=== PATIENT | female | born 1955 | race Caucasian/White ===

== ENCOUNTER 2024-01-31 21:17 | Emergency (ER) | payer OTHER, SELFPAY ==
[2024-01-31 21:17] VITALS: BMI 25.3
[2024-01-31 21:31] VITALS: BP 135/66
[2024-01-31 22:15] LABS: COVID-19 Antigen Negative (Negative)
[2024-02-01 00:53] VITALS: BP 119/72
[2024-02-01 01:34] LABS: % Basophils 0.4 % (0-2); % Eosinophils 0.6 % (0-6); % Immature Granulocytes 0.2 % (0-0.5); % Lymphocytes 36.2 % (20.5-51.1); % Monocytes 14.1 % (1.7-9.3); % Neutrophils 48.5 % (42.2-75.2); Absolute Lymphocytes 1.7 10^3/uL (1.2-3.4); Absolute Monocytes 0.7 10^3/uL (0.1-0.6); Absolute Neutrophils 2.3 10^3/uL (1.4-6.5); Hematocrit 39.5 % (37.0-47.0); Mean Corp Hgb Conc. 35.4 g/dL (33.0-37.0); Mean Corpuscular Hgb 29.9 pg (27.0-31.0); Mean Corpuscular Volume 84.2 fL (81.0-99.0); Nucleated Red Blood Cells % 0 %; Platelet Count 153 10^3/uL (130-400); Red Blood Cell Count 4.69 10^6/uL (4.20-5.40); Red Cell Dist. Width 12.2 % (11.5-14.5); White Blood Cell Count 4.7 10^3/uL (4.8-10.8)
[2024-02-01 01:47] LABS: ALT (SGPT) 23 U/L (0-35); AST (SGOT) 29 U/L (14-36); Albumin 4.2 g/dl (3.5-5.0); Alkaline Phosphatase 67 U/L (38-126); Blood Urea Nitrogen 19 mg/dl (7-17); Calcium 9.4 mg/dl (8.4-10.2); Carbon Dioxide 28 mmol/L (22-30); Chloride 95 mmol/L (98-107); Estimated Creatinine Clearance 83 ml/min; Glucose 120 mg/dl (70-99); Potassium 3.4 mmol/L (3.5-5.1); Sodium 129 mmol/L (135-145); Total Bilirubin 0.6 mg/dl (0.2-1.3); Total Protein 6.7 g/dl (6.3-8.2); eGFR > 60.00
[2024-02-01 01:58] LABS: Troponin I < 0.012 ng/ml
--- NOTE | 2024-02-01 02:11 | ED.GENMED ---
History of Present Illness
General
Chief Complaint: Cough
Source: patient
Exam Limitations: none
Time Seen by Provider: 02/01/24 01:18
Nursing documentation reviewed up to this point in time: agreed with
Travel History
Have you had any contact with someone who has COVID-19?: No
Do you have any symptoms of coronavirus? Fever > 100 degrees, chills, cough, shortness of breath, sore throat, loss of taste or smell, muscle aches, or headache?: No
History of Present Illness
History of Present Illness:
68-year-old female presents emergency ferment complaining of cough, sore throat, sinus congestion, weakness and fever over the past 3 days. Her chest hurts when she coughs. She started azithromycin yesterday for a sinus infection, which she gets
frequently.
Past History
Past History
ED Past Medical History: Cancer (Carcinoid tumor of appendix.), COPD, CVA, GERD, HTN and Psychiatric (Anxiety)
ED Past Surgical History: Appendectomy, Bowel resection (Appendix/carcinoid tumor removal with right hemicolectomy), (�3), Gynecological (Hysterectomy, benign breast biopsies) and Other (Incisional, abdominal wall hernia repair, inguinal
hernia repair)
Social History
Tobacco: Former smoker
Alcohol: Occasional
Personal:
Living: with family
Employment: Disabled
Family History
Family History: Other (Noncontributory)
Review of Systems
Review of Systems
Allergies reviewed?: Yes
All Other Systems: Not applicable
Constitutional: Reports fever
EENT: Reports sore throat and runny nose
Respiratory: Reports cough
Cardiac: Reports no symptoms
ABD/GI: Reports no symptoms
: Reports no symptoms
Musculoskeletal: Reports no symptoms
Skin: Reports no symptoms
Neurological: Reports no symptoms
Endocrine: Reports no symptoms
Hematologic/Lymphatic: Reports no symptoms
Psychiatric: Reports no symptoms
Phy Exam
Physical Exam
Physical Exam:
Physical Exam
General: no apparent distress, not acutely ill
Neck: supple. no meningeal signs. normal posterior pharynx
Heart: s1/s2 regular rate and rhythm, no murmur. equal radial
pulses.
HEENT: Pupils equal round reactive to light, EOMI
Lungs: no acute respiratory distress. Faint wheezing bilaterally
Abdomen: normal bowel sounds. not tender. no CVAT
Neuro: alert and oriented. no focal neurological deficits cranial nerves II through XII intact
Skin: no rash
Psychiatric: well kept. interactive and cooperative
Extremities: no edema. no calf tenderness. negative homans. good distal pulses
Course
Orders/Labs/Results
Orders:
Orders
01/31/24 21:32
Complete Blood Count/With Diff Urgent
Comprehensive Metabolic Panel Urgent
01/31/24 21:42
COVID-19 Antigen Urgent
Source: Nasal Swab
Influenza A+B Rapid Molecular Urgent
TYRESE Source: Nasal Swab
Specimen Description:
01/31/24 21:44
ECG [Electrocardiogram (*1)] Urgent
Reason for Study: Chest Pain
EKG- Treatment ONCE
02/01/24 01:09
Electrocardiogram (*1) Urgent
Reason for Study: Chest Pain
EKG- Treatment ONCE
02/01/24 01:27
Troponin I Urgent
02/01/24 02:08
CR Chest - 2 Views Urgent
Comment:
Reason For Exam: cough, wheeze
02/01/24 02:10
Ipratropium Nebs [Atrovent Nebules] 0.5 mg INH R NOW STA
02/01/24 04:11
Prednisone [Deltasone] 50 mg PO NOW STA
Abnormal Lab Results
02/01/24
01:27
WBC 4.7 L 10^3/uL
(4.8-10.8)
MPV 12.0 H fL
(7.4-10.4)
Absolute Monos (auto) 0.7 H 10^3/uL
(0.1-0.6)
Monocytes % 14.1 H %
(1.7-9.3)
Sodium 129 L mmol/L
(135-145)
Potassium 3.4 L mmol/L
(3.5-5.1)
Chloride 95 L mmol/L
(98-107)
BUN 19 H mg/dl
(7-17)
Glucose 120 H mg/dl
(70-99)
02/01/24 01:27
02/01/24 01:27
Vital Signs
Initial and Last Documented VS:
Initial Vital Signs
Temp Pulse Resp BP Pulse Ox
98.9 F 74 22 135/66 100
01/31/24 21:31 01/31/24 21:31 01/31/24 21:31 01/31/24 21:31 01/31/24 21:31
Last Documented Vital Signs
Temp Pulse Resp BP Pulse Ox
98.8 F 64 20 126/76 94
02/01/24 00:53 02/01/24 00:53 02/01/24 00:53 02/01/24 02:45 02/01/24 02:45
MDM/Problems Addressed
Differential Diagnosis Includes:
Pneumonia, sinusitis
MDM/Problems Addressed:
68-year-old female with viral syndrome, will continue azithromycin for sinusitis. This was started by primary care. Suspect more likely it is viral.
Chronic conditions affecting care: Asthma
Acute Exacerbation and/or Progression of Chronic Illness: Asthma
*Radiology
Radiology exam reviewed: preliminary read by ED provider (Chest x-ray no acute findings)
*Pulse Oximetry
Patient hypoxic: no
*EKG
Interpreted by ED Provider?: Yes
EKG Intrepretation Date: 02/01/24
EKG Intrepretation Time: 01:18
Interpretation: normal
Comparison EKG: no changes
Heart Rate: 65
Rate: normal
Rhythm: sinus
[place]: normal axis
Interval: normal interval
QRS Pattern: normal QRS
Ischemia: no ischemia
*Nurse Ldr Interpretation
Rate: normal
Interpretation: normal
Heart Rate: 65
Rhythm: sinus
*Critical Care Note
Total Time (30-74mins, 75-104mins- exclusive of procedures): Not Applicable
Patient Management
Social determinants of health affecting care: Living situation
Escalation/DeEscalation of care consider admission/obs:
Admit not indicated
ED Attending Note
-
Portions of this chart may have been created with voice recognition software.� Occasional wrong word or��sound alike� substitutions may have occurred due to the inherent limitations of voice recognition software.
Discharge Plan
Departure
Patient Disposition: Home (Routine Discharge)
Date of Disposition: 02/01/24
Time of Disposition: 04:11
Patient with high blood pressure during this ER visit?: Yes
Condition: Good
Discharge Problem:
Acute bronchitis
Instructions: Acute Bronchitis, Adult (DC), BLOOD PRESSURE
Prescriptions:
New
prednisone 50 mg tablet
50 mg PO DAILY Qty: 5 0RF
No Action
diazepam 5 MG tablet
5 mg PO BID
Rx Instructions:
08/29/2023, patient filled this medication on 07/11/2023 for 60 tablets according to PDMP.
losartan 100 MG tablet
100 mg PO QPM
sennosides [Senokot] 8.6 mg Tablet
8.6 mg PO DAILY PRN (Reason: constipation)
ascorbic acid (vitamin C) [Vitamin C] 500 mg Tablet
500 mg PO DAILY PRN (Reason: onset of sinuses)
indapamide 1.25 mg Tablet
1.25 mg PO BID
cholecalciferol (vitamin D3) 25 mcg (1,000 unit) Tablet
25 mcg PO DAILY
fluticasone propionate [Flonase Allergy Relief] 50 mcg/actuation spray,suspension
2 spray intranasal DAILY Qty: 16 0RF
Referrals:
Rachel Pedro MD [Family Provider] - Call in 1-3 days for appt
Interventions
Interventions:
*General Assessment Last Done: 01/31/24 21:31
ED- Fall Risk Assessment Last Done: 02/01/24 01:43
*ED COVID-19 Vaccine History Last Done: 01/31/24 21:31
ED- Pulmonary Assessment Last Done: 02/01/24 01:43
Discharge Date and Time
Print Language: NORWEGIAN
[2024-02-01] MEDS: ATROVENT NEBULES 0.5 MG INH (02:31)
[2024-02-01 02:45] VITALS: BP 126/76
[2024-02-01] MEDS: DELTASONE 50 MG PO (04:37)
[2024-02-01 04:42] VITALS: BP 114/72
== END 2024-02-01 04:55 | disposition home or self-care (01) ==
LOC: EMR 21:17
PROVIDERS: EMERGENCY PHYSICIAN Emergency Medicine; FAMILY PHYSICIAN Internal Medicine
DX: J20.9 Acute bronchitis, unspecified (principal); I10 Essential (primary) hypertension; Z87.891 Personal history of nicotine dependence
CPT/HCPCS: 99285; 94640; 71046; 80053; 84484; 85025; 87502; 87811; 93005

== ENCOUNTER → 2024-12-04 09:15 | Outpatient (REF) | payer OTHER, SELFPAY ==
[2024-12-04 11:54] LABS: % Basophils 1.2 % (0-2); % Eosinophils 2.8 % (0-6); % Immature Granulocytes 0.3 % (0-0.5); % Lymphocytes 32.3 % (20.5-51.1); % Monocytes 10.4 % (1.7-9.3); Absolute Basophils 0.1 10^3/uL (0-0.2); Absolute Eosinophils 0.2 10^3/uL (0-0.7); Absolute Monocytes 0.6 10^3/uL (0.1-0.6); Absolute Neutrophils 3.2 10^3/uL (1.4-6.5); Hemoglobin 13.9 g/dL (12.0-16.0); Mean Corp Hgb Conc. 33.9 g/dL (33.0-37.0); Mean Corpuscular Hgb 29.4 pg (27.0-31.0); Mean Corpuscular Volume 86.7 fL (81.0-99.0); Mean Platelet Volume 12.3 fL (7.4-10.4); Nucleated Red Blood Cells % 0 %; Platelet Count 212 10^3/uL (130-400); Red Blood Cell Count 4.73 10^6/uL (4.20-5.40); Red Cell Dist. Width 12.3 % (11.5-14.5)
[2024-12-04 12:36] LABS: ALT (SGPT) 20 U/L (0-35); AST (SGOT) 24 U/L (14-36); Albumin 4.3 g/dl (3.5-5.0); Alkaline Phosphatase 69 U/L (38-126); Blood Urea Nitrogen 22 mg/dl (7-17); Calcium 9.9 mg/dl (8.4-10.2); Carbon Dioxide 31 mmol/L (22-30); Chloride 98 mmol/L (98-107); Glucose 94 mg/dl (70-99); HDL Cholesterol 77 mg/dl; LDL Cholesterol, Calculated 91 mg/dl; Potassium 3.9 mmol/L (3.5-5.1); Sodium 136 mmol/L (135-145); Total Bilirubin 0.8 mg/dl (0.2-1.3); Total Cholesterol 187 mg/dl (50-199); Total Protein 6.7 g/dl (6.3-8.2); Triglyceride 99 mg/dl (10-149); Very Low Density Lipoprotein 19 mg/dl (0-30); eGFR > 60.00
[2024-12-04 13:26] LABS: Glycohemoglobin (HgbA1c) 5.5 % (4.0-5.6)
== END ==
LOC: HWLAB 09:15
PROVIDERS: ATTENDING PHYSICIAN Internal Medicine
DX: R53.83 Other fatigue (principal); Z13.6 Encounter for screening for cardiovascular disorders; L65.9 Nonscarring hair loss, unspecified
CPT/HCPCS: 36415; 80053; 80061; 83036; 84443; 85025

== ENCOUNTER → 2025-01-08 12:45 | Outpatient (REF) | payer OTHER, SELFPAY | LOC: HWLAB 12:45 | PROVIDERS: ATTENDING PHYSICIAN Physical Medicine & Rehabilitation; FAMILY PHYSICIAN Obstetrics & Gynecology | DX: Z01.818 Encounter for other preprocedural examination (principal) | CPT/HCPCS: 93005 ==

== ENCOUNTER → 2025-04-10 08:22 | Outpatient (REF) | payer OTHER, SELFPAY ==
[2025-04-10 11:01] LABS: % Basophils 0.9 % (0-2); % Eosinophils 1.6 % (0-6); % Immature Granulocytes 0.4 % (0-0.5); % Lymphocytes 30.3 % (20.5-51.1); % Monocytes 8.7 % (1.7-9.3); % Neutrophils 58.1 % (42.2-75.2); Absolute Basophils 0.1 10^3/uL (0-0.2); Absolute Eosinophils 0.1 10^3/uL (0-0.7); Absolute Lymphocytes 2.1 10^3/uL (1.2-3.4); Absolute Monocytes 0.6 10^3/uL (0.1-0.6); Absolute Neutrophils 4.1 10^3/uL (1.4-6.5); Hematocrit 42.5 % (37.0-47.0); Hemoglobin 14.5 g/dL (12.0-16.0); Mean Corp Hgb Conc. 34.1 g/dL (33.0-37.0); Mean Corpuscular Hgb 29.4 pg (27.0-31.0); Mean Platelet Volume 12.5 fL (7.4-10.4); Nucleated Red Blood Cells % 0 %; Platelet Count 212 10^3/uL (130-400); Red Blood Cell Count 4.94 10^6/uL (4.20-5.40); Red Cell Dist. Width 12.3 % (11.5-14.5)
[2025-04-10 11:48] LABS: Iron 146 ug/dl (37-170)
[2025-04-10 11:54] LABS: Free T4 1.25 ng/dl (0.78-2.19)
[2025-04-10 11:58] LABS: Percent Saturation 44 % (20-50); Total Iron Binding Capacity 327 ug/dl (265-497)
[2025-04-10 12:08] LABS: TSH 2.49 uIU/ml (0.47-4.68)
[2025-04-10 13:20] LABS: Vitamin D, 25-OH*** 38.1 ng/mL (30-80)
[2025-04-10 14:02] LABS: Vitamin B12 482 pg/ml (239-931)
== END ==
LOC: RAD 08:22
PROVIDERS: ATTENDING PHYSICIAN Surgery; FAMILY PHYSICIAN Internal Medicine; OTHER PHYSICIAN Nurse Practitioner Family
DX: N81.6 Rectocele (principal); Z86.39 Personal history of other endocrine, nutritional and metabolic disease; L65.9 Nonscarring hair loss, unspecified; R53.82 Chronic fatigue, unspecified
CPT/HCPCS: 36415; 74270; 82306; 82607; 82728; 83540; 83550; 84439; 84443; 85025

== ENCOUNTER → 2025-04-21 16:21 | Emergency (ER) | payer OTHER, SELFPAY ==
[2025-04-21 16:22] VITALS: BMI 25.7
[2025-04-21 16:25] VITALS: BP 186/97
[2025-04-21 16:49] LABS: Hematocrit 36.1 % (37.0-47.0); Hemoglobin 12.9 g/dL (12.0-16.0); Mean Corp Hgb Conc. 35.7 g/dL (33.0-37.0); Mean Corpuscular Volume 84.9 fL (81.0-99.0); Nucleated Red Blood Cells % 0.6 %; Platelet Count 205 10^3/uL (130-400); Red Cell Dist. Width 11.9 % (11.5-14.5)
[2025-04-21 17:09] LABS: ALT (SGPT) 15 U/L (0-35); AST (SGOT) 18 U/L (14-36); Albumin 4.3 g/dl (3.5-5.0); Alkaline Phosphatase 55 U/L (38-126); Blood Urea Nitrogen 17 mg/dl (7-17); Calcium 9.9 mg/dl (8.4-10.2); Carbon Dioxide 30 mmol/L (22-30); Chloride 100 mmol/L (98-107); Glucose 99 mg/dl (70-99); Lipase 103 U/L (23-300); Potassium 3.8 mmol/L (3.5-5.1); Sodium 134 mmol/L (135-145); Total Protein 6.7 g/dl (6.3-8.2); eGFR > 60.00
[2025-04-21 17:13] LABS: Troponin I < 0.012 ng/ml
--- NOTE | 2025-04-21 20:58 | ED.GENMED ---
History of Present Illness
General
Chief Complaint: Abdominal Pain
Source: patient
Time Seen by Provider: 04/21/25 20:34
History of Present Illness
History of Present Illness:
This patient is a 70-year-old female who states that for at least the last few days she is having episodes where she has discomfort in her abdomen especially in the left upper quadrant, described as 'heartburn', and intermittent nausea. On April 18
she did have 1 episode of vomiting that was nonbloody. Since that time, she is tolerating food and drink as well as her medications. She develops unpredictable episodes over the last few days of discomfort in her abdomen that will sometimes
radiate around (not through' to her mid back. She had left arm tingling a few days ago lasting seconds, otherwise none then. She feels slightly bloated. She also notes recent urinary urgency and frequency without associated dysuria or hematuria.
She denies fever, chills, dyspnea, extremity pain, swelling, headache, dizziness. She does state that sometimes, lasting a minute or 2 at a time, she will also have upper chest pain. This has not happened today.
Past History
Past History
ED Past Medical History: Cancer (Carcinoid tumor of appendix.), COPD, CVA, GERD, HTN and Psychiatric (Anxiety)
ED Past Surgical History: Appendectomy, Bowel resection (Appendix/carcinoid tumor removal with right hemicolectomy), (�3), Gynecological (Hysterectomy, benign breast biopsies) and Other (Incisional, abdominal wall hernia repair, inguinal
hernia repair)
Social History
Tobacco: Former smoker
Alcohol: Occasional
Drug: None
Living: with family
Employment: Disabled
Family History
Family History: Other (Noncontributory)
Phy Exam
Physical Exam
Physical Exam:
GENERAL: Alert , in no apparent distress
EYE: pupils equal and reactive
NECK: Supple, no significant adenopathy.
ENT: o/p clr, mmm.
CARDIAC: Regular rate and rhythm .
LUNGS: Clear breath sounds bilaterally, no acute respiratory distress, no wheezes/rales/rhonchi
ABDOMEN: Soft, nonspecific mild tenderness (espec luq), no r/g, no cvat, bs noted
NEUROLOGICAL: Alert and oriented, no focal neuro deficits
SKIN: Warm and dry, skin intact.
MUSCULOSKELETAL: No edema, well perfused.
PSYCH: Normal and appropriate interaction.
Course
Orders/Labs/Results
Orders:
Orders
04/21/25 16:27
ECG [Electrocardiogram (*1)] Urgent
Reason for Study: Hypertension, Benign
04/21/25 16:28
EKG- Treatment ONCE
04/21/25 16:34
Complete Blood Count/With Diff Urgent
Comprehensive Metabolic Panel Urgent
Lactic Acid Urgent
Lipase Urgent
Troponin I Urgent
04/21/25 20:56
Iohexol [Omnipaque] See Protocol PO NOW STA
04/21/25 22:29
Diphenhydramine [Benadryl] 50 mg IV NOW STA
Hydrocortisone Sod Succinate [Solu-Cortef] 200 mg IV NOW STA
04/21/25 22:47
Urinalysis Reflex To Culture Urgent
Date Specimen was Collected: 04/21/25
Time Specimen was Collected: 22:47
Urine Microscopic Reflex Cult Urgent
Urine Culture Urgent
TYRESE Source: U
Specimen Description:
Date Specimen was Collected: 04/21/25
Time Specimen was Collected: 22:47
04/21/25 22:48
Iohexol [Omnipaque] See Protocol PO NOW STA
04/22/25 00:01
CT Abd/pel (oral only)-[facility] Only Urgent
Reason For Exam: hx mult surg, now pain
Abnormal Lab Results
04/21/25 04/21/25
16:34 22:47
Hct 36.1 L %
(37.0-47.0)
MPV 12.0 H fL
(7.4-10.4)
Absolute Monos (auto) 0.7 H 10^3/uL
(0.1-0.6)
Monocytes % 10.5 H %
(1.7-9.3)
Sodium 134 L mmol/L
(135-145)
Lactic Acid 0.5 L mmol/L
(0.7-2.0)
Leukocyte Esterase Rfl 1+ A
(Negative)
Urine WBC (Reflex) 11-15 A /HPF
(0-5)
Urine Bacteria (Reflex) Few A
(Negative)
04/21/25 16:34
04/21/25 16:34
Vital Signs
Initial and Last Documented VS:
Initial Vital Signs
Temp Pulse Resp BP Pulse Ox
98.0 F 66 20 186/97 99
04/21/25 16:25 04/21/25 16:25 04/21/25 16:25 04/21/25 16:25 04/21/25 16:25
Last Documented Vital Signs
Temp Pulse Resp BP Pulse Ox
98.0 F 46 12 138/64 98
04/21/25 16:25 04/22/25 01:45 04/22/25 01:45 04/22/25 00:00 04/22/25 01:45
*Pulse Oximetry
SaO2: 99
Oxygen Mode of Delivery: Room air
Update Note
Update Note:
Patient presents to the Emergency Department with ____abd pain, back pain, n, v
Number and Complexity of Problems Addressed at the Encounter
� Chronic conditions affecting care:
� Acute Exacerbation and/or Progression of Chronic Illness:
� Differential Diagnosis includes:but not limited to: obstruction, diverticulitis, gerd, acs, etc etc etc
Amount and/or Complexity of Data to be Reviewed and Analyzed
� I performed an independent evaluation of and my interpretation is:
EKG:Read by me, sinus bradycardia, no acute ischemia
CT: Read by vision no acute intra-abdominal pathology. No hydronephrosis or nephrolithiasis. No bowel obstruction or inflammation. Appendix is normal. No free air or free fluid. Moderate atherosclerotic calcifications.
Gallbladder and pancreas are unremarkable.
Xrays:
Laboratory Studies:Generally unremarkable
Other:
� Review of other/old records reveals:
� Clinical information was obtained by an independent historian:
� Prescriptions/Medications Considered but not given:
� Further testing considered but not performed:
Risk of Complications and/or Morbidity or Mortality of Patient Management
� Social determinants of health affecting care:
� Discussion with other providers (PCP, Hospitalists, Consultants, etc):
� Escalation of care including admission/observation vs risk of discharge considered: 2:25 AM results generally unremarkable here. Patient feeling well and stable for discharge. Discussed with her importance of follow-up and
reasons return to the ER.
ED Attending Note
-
Portions of this chart may have been created with voice recognition software.� Occasional wrong word or��sound alike� substitutions may have occurred due to the inherent limitations of voice recognition software.
Discharge Plan
Departure
Patient Disposition: Home (Routine Discharge)
Date of Disposition: 04/22/25
Time of Disposition: 02:26
Patient with high blood pressure during this ER visit?: Yes
Condition: Good
Discharge Problem:
Abdominal pain
Instructions: Abdominal Pain, BLOOD PRESSURE
Prescriptions:
No Action
diazepam 5 MG tablet
5 mg PO BID
Rx Instructions:
08/29/2023, patient filled this medication on 07/11/2023 for 60 tablets according to PDMP.
losartan 100 MG tablet
100 mg PO QPM
sennosides [Senokot] 8.6 mg Tablet
8.6 mg PO DAILY PRN (Reason: constipation)
ascorbic acid (vitamin C) [Vitamin C] 500 mg Tablet
500 mg PO DAILY PRN (Reason: onset of sinuses)
indapamide 1.25 mg Tablet
1.25 mg PO BID
cholecalciferol (vitamin D3) 25 mcg (1,000 unit) Tablet
25 mcg PO DAILY
fluticasone propionate [Flonase Allergy Relief] 50 mcg/actuation spray,suspension
2 spray intranasal DAILY Qty: 16 0RF
prednisone 50 mg tablet
50 mg PO DAILY Qty: 5 0RF
Referrals:
Rachel Pedro MD [Family Provider] - Next open appointment
Activity Restrictions/Additional Instructions:
PLEASE FOLLOW-UP WITH YOUR DOCTORS PROMPTLY. IF YOU DEVELOP RECURRENT VOMITING, CHEST PAIN, ABDOMINAL PAIN, FEVER, OR OTHER WORRISOME SIGNS, PLEASE RETURN TO THE ER IMMEDIATELY!
Interventions
Interventions:
*General Assessment Last Done: 04/21/25 16:25
GG-Szxcis-Saonhillfi Assessment Last Done: 04/21/25 22:22
Discharge Date and Time
Print Language: SA[place] TOME[place]
[2025-04-21 21:00] VITALS: BP 194/83
[2025-04-21 22:00] VITALS: BP 143/77
[2025-04-21] MEDS: OMNIPAQUE 50 ML PO (22:01)
[2025-04-21 22:54] LABS: Urine Character Clear (Clear)
[2025-04-21 23:00] VITALS: BP 170/72
[2025-04-21 23:01] LABS: Urine Red Blood Cell 0-2 /HPF (0-2); Urine Squamous Cell 0-2 /LPF (Few)
[2025-04-22] VITALS: BP 138/64
[2025-04-22 02:00] VITALS: BP 145/116
[2025-04-22 02:19] VITALS: BP 156/84
== END | disposition home or self-care (01) ==
LOC: EMR 16:21
PROVIDERS: Emergency Medicine; EMERGENCY PHYSICIAN Emergency Medicine; FAMILY PHYSICIAN Internal Medicine
DX: R10.12 Left upper quadrant pain (principal); R11.2 Nausea with vomiting, unspecified; R12 Heartburn; R14.0 Abdominal distension (gaseous); R07.89 Other chest pain; R20.2 Paresthesia of skin; R39.15 Urgency of urination; R35.0 Frequency of micturition; M54.9 Dorsalgia, unspecified; I10 Essential (primary) hypertension; J44.9 Chronic obstructive pulmonary disease, unspecified; F41.9 Anxiety disorder, unspecified; K21.9 Gastro-esophageal reflux disease without esophagitis; Z87.891 Personal history of nicotine dependence; Z98.0 Intestinal bypass and anastomosis status; Z85.89 Personal history of malignant neoplasm of other organs and systems; Z86.73 Personal history of transient ischemic attack (TIA), and cerebral infarction without residual deficits; Z88.1 Allergy status to other antibiotic agents; Z88.5 Allergy status to narcotic agent; Z91.013 Allergy to seafood; Z88.2 Allergy status to sulfonamides; Z88.8 Allergy status to other drugs, medicaments and biological substances; Z91.048 Other nonmedicinal substance allergy status
CPT/HCPCS: 99284; 74176; 80053; 81003; 81015; 83605; 83690; 84484; 85025; 87086; 93005

== ENCOUNTER → 2025-05-01 15:00 | Outpatient (REF) | payer OTHER, SELFPAY | LOC: HWRAD 15:00 | PROVIDERS: ATTENDING PHYSICIAN Nurse Practitioner Family; FAMILY PHYSICIAN Internal Medicine | DX: Z86.39 Personal history of other endocrine, nutritional and metabolic disease (principal); L65.9 Nonscarring hair loss, unspecified; R53.82 Chronic fatigue, unspecified | CPT/HCPCS: 76536 ==

== ENCOUNTER → 2025-06-06 11:21 | Outpatient (REF) | payer OTHER, SELFPAY | LOC: HWRCS 11:21 | PROVIDERS: ATTENDING PHYSICIAN Internal Medicine Cardiovascular Disease; FAMILY PHYSICIAN Internal Medicine | DX: I51.7 Cardiomegaly (principal) | CPT/HCPCS: 93306 ==

== ENCOUNTER 2025-06-23 16:06 | Emergency (ER) | payer OTHER, SELFPAY ==
[2025-06-23] VITALS (10 sets, daily range): BP systolic 136–194; BP diastolic 60–119; BMI 24.0
[2025-06-23 16:41] LABS: Hematocrit 41.4 % (37.0-47.0); Hemoglobin 13.9 g/dL (12.0-16.0); Mean Corp Hgb Conc. 33.6 g/dL (33.0-37.0); Mean Corpuscular Volume 86.4 fL (81.0-99.0); Nucleated Red Blood Cells % 0 %; Platelet Count 199 10^3/uL (130-400); Red Cell Dist. Width 11.9 % (11.5-14.5)
[2025-06-23 17:01] LABS: ALT (SGPT) 17 U/L (0-35); AST (SGOT) 19 U/L (14-36); Albumin 4.4 g/dl (3.5-5.0); Alkaline Phosphatase 72 U/L (38-126); Blood Urea Nitrogen 16 mg/dl (7-17); Calcium 10.1 mg/dl (8.4-10.2); Carbon Dioxide 32 mmol/L (22-30); Chloride 98 mmol/L (98-107); Glucose 96 mg/dl (70-99); Lipase 165 U/L (23-300); Potassium 3.9 mmol/L (3.5-5.1); Sodium 133 mmol/L (135-145); Total Protein 7.0 g/dl (6.3-8.2); eGFR > 60.00
[2025-06-23] MEDS: ZOFRAN 4 MG IV (18:01)
[2025-06-23] MEDS: DILAUDID 1 MG IV (18:01)
[2025-06-23] MEDS: OMNIPAQUE 50 ML PO (18:01)
--- NOTE | 2025-06-23 18:29 | ED.GENMED ---
History of Present Illness
General
Chief Complaint: Abdominal Symptoms
Time Seen by Provider: 06/23/25 17:16
History of Present Illness
History of Present Illness:
70-year-old female with history of IBS and GERD presenting to the emergency department for abdominal discomfort. Patient reports pain to the lower abdomen since yesterday. Pain is all throughout the lower abdomen. Reports surgical history of
hernia repair and total hysterectomy. Reports nausea without vomiting. Also notes constipation and some dysuria. Feels a burning type sensation, radiating throughout her abdomen. She talk to her doctor who advised that she come to the hospital
for further evaluation. Denies any fever or additional acute medical complaints
Past History
Past History
ED Past Medical History: Cancer (Carcinoid tumor of appendix.), COPD, CVA, GERD, HTN and Psychiatric (Anxiety)
ED Past Surgical History: Appendectomy, Bowel resection (Appendix/carcinoid tumor removal with right hemicolectomy), (�3), Gynecological (Hysterectomy, benign breast biopsies) and Other (Incisional, abdominal wall hernia repair, inguinal
hernia repair)
Social History
Tobacco: Former smoker
Alcohol: Occasional
Drug: None
Personal:
Living: with family
Employment: Disabled
Family History
Family History: Other (Noncontributory)
Phy Exam
Physical Exam
Physical Exam:
General: Well-appearing, no clinical signs of dehydration, nontoxic and in no acute distress
HEENT: protecting airway
Neck: appears supple
CV: Normal heart rate, regular rhythm
Resp: No accessory muscle use, no increased work of breathing, lungs clear to auscultation bilaterally
Abd: Soft and non-distended, generalized tenderness to lower abdomen, most prominent in the right lower quadrant left lower quadrant
Extremities: No deformities, no swelling, no erythema, pulses and sensation intact
Neuro: alert, no focal neurologic deficit
: deferred
Rectal: deferred
Psych: Normal affect
Skin: Intact
Course
Orders/Labs/Results
Orders:
Orders
06/23/25 16:29
Complete Blood Count/With Diff Urgent
Comprehensive Metabolic Panel Urgent
Lactic Acid Urgent
Lipase Urgent
06/23/25 17:48
HYDROmorphone [Dilaudid] 1 mg IV NOW STA
Iohexol [Omnipaque] See Protocol PO NOW STA
Ondansetron Injectable [Zofran] 4 mg IV NOW STA
06/23/25 17:49
CT Abd/pel (oral only)-[facility] Only Urgent
Comment:
Reason For Exam: lower abd pain, nausea, constipation
06/23/25 20:26
0.9% Sodium Chloride 1000 ml [Nss] 1,000 ml IV BOLUS
Abnormal Lab Results
06/23/25
16:29
MPV 12.4 H fL
(7.4-10.4)
Absolute Monos (auto) 0.7 H 10^3/uL
(0.1-0.6)
Monocytes % 9.4 H %
(1.7-9.3)
Sodium 133 L mmol/L
(135-145)
Carbon Dioxide 32 H mmol/L
(22-30)
06/23/25 16:29
06/23/25 16:29
Vital Signs
Initial and Last Documented VS:
Initial Vital Signs
Temp Pulse Resp BP Pulse Ox
98.0 F 58 20 178/89 99
06/23/25 16:09 06/23/25 16:09 06/23/25 16:09 06/23/25 16:09 06/23/25 16:09
Last Documented Vital Signs
Temp Pulse Resp BP Pulse Ox
98.6 F 61 16 179/79 97
06/23/25 17:56 06/23/25 18:45 06/23/25 18:45 06/23/25 19:00 06/23/25 19:45
MDM/Problems Addressed
MDM/Problems Addressed:
70-year-old female with history of IBS presenting for lower abdominal pain with nausea. Vital signs on arrival are significant for high blood pressure
On exam patient is resting comfortably, no acute distress, nontoxic. Generalized tenderness to the lower abdomen. Patient describes the pain as burning sensation. Possible GERD versus gastritis component. Patient had similar symptoms back in
April. Noted to have multiple lower abdominal surgeries. Also reports constipation. Appendicitis versus diverticulitis versus bowel obstruction is also consideration. Patient is allergic to IV contrast will obtain CT with p.o. contrast. Patient
requesting Dilaudid for pain. Will administer. Multiple drug allergies.
21:45 - Patient's labs are unremarkable and CT without acute findings. And discussed results with patient. There is mention of possible gastroparesis given delayed emptying which could be contributing to patient symptoms. After the Dilaudid,
patient felt she had a reaction from the medication, however notes that she has tolerated this medication in the past. She felt like her face was twitching, however on my assessment, no twitching, no paralysis, no focal neurologic deficits,
speaking full sentences. No sign of allergic reaction. Patient continues to rest comfortably. She notes concern for H. pylori. Advised follow-up with her doctor or her GI doctor for further testing. Patient son is going to pick her up. Return
precautions discussed and patient verbalized understanding
*Pulse Oximetry
SaO2: 100
Oxygen Mode of Delivery: Room air
Patient hypoxic: no
*Critical Care Note
Total Time (30-74mins, 75-104mins- exclusive of procedures): Not Applicable
ED Attending Note
-
Portions of this chart may have been created with voice recognition software.� Occasional wrong word or��sound alike� substitutions may have occurred due to the inherent limitations of voice recognition software.
Discharge Plan
Departure
Prescriptions:
No Action
diazepam 5 MG tablet
5 mg PO BID
sennosides [Senokot] 8.6 mg Tablet
8.6 mg PO DAILY PRN (Reason: constipation)
ascorbic acid (vitamin C) [Vitamin C] 500 mg Tablet
500 mg PO DAILY PRN (Reason: onset of sinuses)
cholecalciferol (vitamin D3) 25 mcg (1,000 unit) Tablet
25 mcg PO DAILY
fluticasone propionate [Flonase Allergy Relief] 50 mcg/actuation spray,suspension
2 spray intranasal DAILY Qty: 16 0RF
Referrals:
PRIVATE,PHYSICIAN [Family Provider, Internal Medicine]
Interventions
Interventions:
*Risk Screen - Suicide Last Done: 06/23/25 17:56
*General Assessment Last Done: 06/23/25 16:09
*Neglect/Abuse Screening Last Done: 06/23/25 17:56
*ED- Fall Risk Assessment Last Done: 06/23/25 17:56
*ED COVID-19 Vaccine History Last Done: 06/23/25 17:56
DL-Joxmim-Vrejriomqn Assessment Last Done: 06/23/25 17:56
Discharge Date and Time
Print Language: IRISH
--- NOTE | 2025-06-23 19:45 | EDRN ---
Report received, introduced myself to patient, patient finished oral contrast and will be going over to CT shortly
--- NOTE | 2025-06-23 20:17 | EDRN ---
CT called me to come over and look at patient felt like she was talking weird, patient at this time was talking normal, she reports her face feels weird, had patient smile and smile is symmetrical, informed Dr. Mcghee who came in to assess patient
who is doing well.
[2025-06-23] MEDS: NSS 1000 IV (20:29)
== END 2025-06-23 23:04 | disposition home or self-care (01) ==
LOC: EMR 16:06
PROVIDERS: Emergency Medicine; EMERGENCY PHYSICIAN Student in an Organized Health Care Education/Training Program
DX: R10.30 Lower abdominal pain, unspecified (principal); R11.0 Nausea; R30.0 Dysuria; K59.00 Constipation, unspecified; K58.9 Irritable bowel syndrome, unspecified; K21.9 Gastro-esophageal reflux disease without esophagitis; J44.9 Chronic obstructive pulmonary disease, unspecified; I10 Essential (primary) hypertension; F41.9 Anxiety disorder, unspecified; Z85.89 Personal history of malignant neoplasm of other organs and systems; Z86.73 Personal history of transient ischemic attack (TIA), and cerebral infarction without residual deficits; Z87.891 Personal history of nicotine dependence; Z98.0 Intestinal bypass and anastomosis status; Z88.2 Allergy status to sulfonamides; Z88.8 Allergy status to other drugs, medicaments and biological substances; Z88.1 Allergy status to other antibiotic agents; Z88.5 Allergy status to narcotic agent; Z91.013 Allergy to seafood
CPT/HCPCS: 99284; 96374; 96375; 96361; 74176; 80053; 83605; 83690; 85025

== ENCOUNTER 2025-07-02 09:54 | Emergency (ER) | payer OTHER, SELFPAY ==
[2025-07-02 09:58] VITALS: BP 164/82
[2025-07-02 10:24] LABS: COVID-19 Antigen Positive (Negative)
--- NOTE | 2025-07-02 11:15 | ED.GENMED ---
History of Present Illness
General
Chief Complaint: Cold/Flu/URI Symptoms
Source: patient
Exam Limitations: none
Time Seen by Provider: 07/02/25 11:01
History of Present Illness
History of Present Illness:
70yoF with a history of asthma, hypertension, GERD presenting for evaluation of flu-like symptoms. Symptoms began yesterday. She reports generalized body aches, headache, chills, and vomiting. She reports that she was vomiting throughout the
night. She reports subjective fevers but has not checked her temperature. Her son was seen in the ED 2 days ago and diagnosed with COVID. She denies any chest pain or shortness of breath.
Past History
Past History
ED Past Medical History: Cancer (Carcinoid tumor of appendix.), COPD, CVA, GERD, HTN and Psychiatric (Anxiety)
ED Past Surgical History: Appendectomy, Bowel resection (Appendix/carcinoid tumor removal with right hemicolectomy), (�3), Gynecological (Hysterectomy, benign breast biopsies) and Other (Incisional, abdominal wall hernia repair, inguinal
hernia repair)
Social History
Tobacco: Former smoker
Alcohol: Occasional
Drug: None
Personal:
Living: with family
Employment: Disabled
Family History
Family History: Other (Noncontributory)
Phy Exam
General Physical Exam
General Presentation: well appearing and no apparent distress
General Skin: warm and dry
General Habitus: normal
General Mental: alert
Cardiovascular Exam
Cardiovascular Exam: regular rate/rhythm
Pulmonary Exam
Pulmonary Exam: lungs clear, no respiratory distress, no rales, no crackles, no rhonchi and no wheezing
Gastrointestinal Exam
Gastrointestinal Exam: non tender, soft and non distended
Neurological Exam
Neurological Exam: alert
[place] Coma Scale
Eye Opening: Spontaneous
Verbal Response: Oriented
Motor Response: Obeys Commands
GCS Total Score: 15
Skin Exam
Skin Exam: normal color and warm/dry
Psychiatric Exam
Psychiatric Exam: normal mood/affect
Course
Orders/Labs/Results
Orders:
Orders
07/02/25 10:04
COVID-19 Antigen Urgent
Source: Nasal Swab
07/02/25 11:13
0.9% Sodium Chloride 1000 ml [Nss] 1,000 ml IV BOLUS
Ketorolac [Toradol] 15 mg IV NOW STA
Ondansetron Injectable [Zofran] 4 mg IV NOW STA
07/02/25 11:28
Complete Blood Count/With Diff Urgent
Comprehensive Metabolic Panel Urgent
Abnormal Lab Results
07/02/25 07/02/25
10:04 11:28
MPV 12.5 H fL
(7.4-10.4)
Absolute Lymphs (auto) 0.4 L 10^3/uL
(1.2-3.4)
Neutrophils % 84.0 H %
(42.2-75.2)
Lymphocytes % 6.7 L %
(20.5-51.1)
Sodium 133 L mmol/L
(135-145)
Glucose 120 H mg/dl
(70-99)
SARS-CoV-2 Antigen Positive A
(Negative)
07/02/25 11:28
07/02/25 11:28
Vital Signs
Initial and Last Documented VS:
Initial Vital Signs
Temp Pulse Resp BP Pulse Ox
99.8 F 87 16 164/82 100
07/02/25 09:58 07/02/25 09:58 07/02/25 09:58 07/02/25 09:58 07/02/25 09:58
Last Documented Vital Signs
Temp Pulse Resp BP Pulse Ox
99.8 F 80 20 164/82 100
07/02/25 09:58 07/02/25 12:48 07/02/25 12:36 07/02/25 09:58 07/02/25 12:36
MDM/Problems Addressed
Differential Diagnosis Includes:
70yoF here with flu-like symptoms x 1 day. C/o body aches, fatigue, FLORES, vomiting. Son is sick with COVID. VSS and oxygen saturation 100% on room air. She appears uncomfortable but is non-toxic. Lungs CTA and respirations non-labored. Differential
diagnosis includes but is not limited to: COVID, other viral illness, dehydration, migraine
Initial ED plan: COVID swab sent in triage which is positive. Will check CBC and CMP. IV Zofran, Toradol, and fluid bolus ordered for symptoms.
*Pulse Oximetry
SaO2: 100
Oxygen Mode of Delivery: Room air
Patient hypoxic: no
*Critical Care Note
Total Time (30-74mins, 75-104mins- exclusive of procedures): Not Applicable
Update Note
Update Note:
Sodium is mildly low at 133. Remainder of labs unremarkable and renal function normal. Patient is feeling much better on reassessment. Oxygen saturation remains 100%. She is stable for discharge. Supportive care discussed and prescription
provided for Zofran. Advised follow-up with PCP and ED return precautions reviewed. She was discharged stable condition.
ED Attending Note
-
Portions of this chart may have been created with voice recognition software.� Occasional wrong word or��sound alike� substitutions may have occurred due to the inherent limitations of voice recognition software.
Discharge Plan
Departure
Patient Disposition: Home (Routine Discharge)
Date of Disposition: 07/02/25
Time of Disposition: 12:38
Patient with high blood pressure during this ER visit?: Yes
Discharge Problem:
COVID-19, Nausea and vomiting
Instructions: Coronavirus Home Quarantine
Prescriptions:
New
ondansetron 4 mg tablet,disintegrating
4 mg PO Q6H PRN (Reason: nausea and vomiting) Qty: 20 0RF
No Action
diazepam 5 MG tablet
5 mg PO BID
sennosides [Senokot] 8.6 mg Tablet
8.6 mg PO DAILY PRN (Reason: constipation)
ascorbic acid (vitamin C) [Vitamin C] 500 mg Tablet
500 mg PO DAILY PRN (Reason: onset of sinuses)
cholecalciferol (vitamin D3) 25 mcg (1,000 unit) Tablet
25 mcg PO DAILY
fluticasone propionate [Flonase Allergy Relief] 50 mcg/actuation spray,suspension
2 spray intranasal DAILY Qty: 16 0RF
Referrals:
Rachel Pedro MD [Family Provider]
Activity Restrictions/Additional Instructions:
Take Zofran as needed for nausea. Drink plenty of fluids and eat a bland diet (bananas, rice, applesauce toast). Take Tylenol as needed for headaches/fever. Remain in quarantine until symptoms improve.
Please follow-up with your famiy doctor next week. Return to the ER with any new or worsening symptoms including trouble breathing.
Interventions
Interventions:
*Risk Screen - Suicide Last Done: 07/02/25 11:34
*General Assessment Last Done: 07/02/25 11:34
*Neglect/Abuse Screening Last Done: 07/02/25 11:34
*ED- Fall Risk Assessment Last Done: 07/02/25 11:34
*ED COVID-19 Vaccine History Last Done: 07/02/25 11:34
*Nursing Disposition Last Done: 07/02/25 12:49
ED- Pulmonary Assessment Last Done: 07/02/25 11:34
Discharge Date and Time
Discharge Date/Time: 07/02/25 13:00
Print Language: FINNISH
[2025-07-02] MEDS: NSS 1000 IV (11:27)
[2025-07-02] MEDS: TORADOL 15 MG IV (11:27)
[2025-07-02] MEDS: ZOFRAN 4 MG IV (11:27)
[2025-07-02 11:37] LABS: Hematocrit 41.2 % (37.0-47.0); Hemoglobin 14.2 g/dL (12.0-16.0); Mean Corp Hgb Conc. 34.5 g/dL (33.0-37.0); Mean Corpuscular Volume 84.3 fL (81.0-99.0); Nucleated Red Blood Cells % 0 %; Platelet Count 170 10^3/uL (130-400); Red Cell Dist. Width 12.0 % (11.5-14.5)
[2025-07-02 12:02] LABS: ALT (SGPT) 15 U/L (0-35); AST (SGOT) 19 U/L (14-36); Albumin 4.5 g/dl (3.5-5.0); Alkaline Phosphatase 76 U/L (38-126); Blood Urea Nitrogen 13 mg/dl (7-17); Calcium 9.8 mg/dl (8.4-10.2); Carbon Dioxide 25 mmol/L (22-30); Chloride 102 mmol/L (98-107); Glucose 120 mg/dl (70-99); Potassium 3.9 mmol/L (3.5-5.1); Sodium 133 mmol/L (135-145); Total Protein 7.2 g/dl (6.3-8.2); eGFR > 60.00
== END 2025-07-02 13:00 | disposition home or self-care (01) ==
LOC: EMR 09:54
PROVIDERS: Physician Assistant; EMERGENCY PHYSICIAN Emergency Medicine; FAMILY PHYSICIAN Internal Medicine
DX: U07.1 COVID-19 (principal); R11.2 Nausea with vomiting, unspecified; J44.89 Other specified chronic obstructive pulmonary disease; I10 Essential (primary) hypertension; Z86.73 Personal history of transient ischemic attack (TIA), and cerebral infarction without residual deficits; Z87.891 Personal history of nicotine dependence
CPT/HCPCS: 99284; 96374; 96375; 96361; 80053; 85025; 87811